=== PATIENT | male | born 1995 | race African-American/Black ===

== ENCOUNTER 2017-08-31 03:57 | Emergency (ER) | payer MEDICAID, OTHER ==
[~2017-08-31] VITALS: Ht 180.3 cm; Wt 91.8 kg
[2017-08-31] MEDS ORDERED: LORazepam 1MG TABLET ONE (04:49)
[2017-08-31] MEDS ORDERED: LORazepam 1MG TABLET PO ONE (05:00)
[2017-08-31 05:23] VITALS: BP 148/83
== END 2017-08-31 05:26 | disposition home or self-care (01) ==
LOC: ED 05:24
DX: F41.1 Generalized anxiety disorder (principal); F10.220 Alcohol dependence with intoxication, uncomplicated
CPT/HCPCS: 99284

== ENCOUNTER 2018-08-02 11:31 | Emergency (ER) | payer OTHER ==
[~2018-08-02] VITALS: Ht 180.3 cm; Wt 86.2 kg
[2018-08-02 12:39] LABS: BASOPHILS # (AUTO) 0.03 x10^3/uL (0-0.1); BASOPHILS % (AUTO) 0 % (0-1); EOSINOPHILS # (AUTO) 0.28 x10^3/uL (0-0.4); EOSINOPHILS % (AUTO) 2 % (1-7); LYMPHOCYTES # (AUTO) 1.23 x10^3/uL (1-3.4); LYMPHOCYTES % (AUTO) 10 % (22-44); MD NO; MEAN CORPUSCULAR HGB CONC 34.1 g/dL (33.2-36.2); MEAN CORPUSCULAR VOLUME 87.9 fL (81-97); MEAN PLATELET VOLUME 7.6 fL (7.4-10.4); MONOCYTES # (AUTO) 0.32 x10^3/uL (0.2-0.8); MONOCYTES % (AUTO) 3 % (2-9); NEUTROPHILS # (AUTO) 10.66 x10^3/uL (1.8-6.8); NEUTROPHILS % (AUTO) 85 % (42-75); PLATELET COUNT 338 x10^3/uL (130-400); RED BLOOD COUNT 5.46 x10^6/uL (4.38-5.82); RED CELL DISTRIBUTION WIDTH 13.7 % (9.4-14.8)
[2018-08-02 12:45] LABS: ALBUMIN 4.5 g/dL (3.4-5.0); ANION GAP 13 mmol/L (5-15); CALCIUM 9.4 mg/dL (8.5-10.1); CHLORIDE 108 mmol/L (98-107); CREATININE 1.44 mg/dL (0.7-1.3)
[2018-08-02 14:04] LABS: MICROSCOPIC NOT IND
[2018-08-02 14:08] LABS: CULTURE INDICATED? NO
[2018-08-02 14:44] VITALS: BP 133/47
== END 2018-08-02 14:46 | disposition home or self-care (01) ==
LOC: ED 13:23
DX: F10.10 Alcohol abuse, uncomplicated (principal); F41.1 Generalized anxiety disorder; I86.1 Scrotal varices; F17.210 Nicotine dependence, cigarettes, uncomplicated
CPT/HCPCS: 36415; 76870; 80048; 81003; 82040; 85025; 93975; 99284; Q0177

== ENCOUNTER 2018-11-11 11:31 | Emergency (ER) | payer OTHER ==
[~2018-11-11] VITALS: Ht 182.9 cm; Wt 81.8 kg
--- NOTE | 2018-11-11 11:50 | NUR ---
Pt provided urine sample, Pt transported from ED 22 to ED room Trauma 1. Provided report to TOY Charles.
--- NOTE | 2018-11-11 12:00 | NUR ---
THIS IS A 23 YEAR OLD MALE WHO presents to ED by EMS with L2K in place. Pt has ETOH odor. Pt's parents called 911 and reported pt suicidal. Pt admits to holding a knife to his throat and stating, "I wish I had the bravery to kill myself." Pt is AOX4, has unlabored respirations equal bilaterally, NADN. SITTER AT BS, BELONGINGS SECURED
[2018-11-11 12:23] LABS: ALBUMIN 4.1 g/dL (3.4-5.0); ANION GAP 10 mmol/L (5-15); CALCIUM 8.9 mg/dL (8.5-10.1); CHLORIDE 108 mmol/L (98-107); CREATININE 1.17 mg/dL (0.7-1.3)
[2018-11-11 12:24] LABS: BASOPHILS # (AUTO) 0.03 x10^3/uL (0-0.1); BASOPHILS % (AUTO) 0 % (0-1); EOSINOPHILS # (AUTO) 0.03 x10^3/uL (0-0.4); EOSINOPHILS % (AUTO) 0 % (1-7); LYMPHOCYTES # (AUTO) 2.41 x10^3/uL (1-3.4); LYMPHOCYTES % (AUTO) 33 % (22-44); MD NO; MEAN CORPUSCULAR HEMOGLOBIN 29.2 pg (27.5-34.5); MEAN CORPUSCULAR HGB CONC 33.3 g/dL (33.2-36.2); MEAN CORPUSCULAR VOLUME 87.8 fL (81-97); MEAN PLATELET VOLUME 7.7 fL (7.4-10.4); MONOCYTES # (AUTO) 0.47 x10^3/uL (0.2-0.8); MONOCYTES % (AUTO) 6 % (2-9); NEUTROPHILS # (AUTO) 4.37 x10^3/uL (1.8-6.8); NEUTROPHILS % (AUTO) 60 % (42-75); PLATELET COUNT 320 x10^3/uL (130-400); RED BLOOD COUNT 5.59 x10^6/uL (4.38-5.82); RED CELL DISTRIBUTION WIDTH 13.9 % (9.4-14.8)
[2018-11-11 12:24] LABS: AMPHETAMINE SCREEN, URINE Negative (Negative); BARBITURATE SCREEN, URINE Negative (Negative); BENZODIAZEPINE SCREEN, URINE Negative (Negative); CANNABINOID SCREEN, URINE Negative (Negative); COCAINE SCREEN, URINE Negative (Negative); METHADONE SCREEN, URINE Negative (Negative); OPIATE SCREEN, URINE Negative (Negative)
[2018-11-11 12:25] LABS: ACETAMINOPHEN < 2 mcg/mL (10-30); SALICYLATE LEVEL < 1.7 mg/dL (2.8-20.0)
--- NOTE | 2018-11-11 12:52 | NUR ---
SITTER AT , MEAL PROVIDED. BELONGINGS IN SECURED LOCATION
--- NOTE | 2018-11-11 13:30 | NUR ---
SAT WITH PATIENT AT LENGTH, STATES, "I DONT WANT TO LIVE". EMOTIONAL SUPPORT GIVEN. SITTER AT BS, WATER GIVEN
--- NOTE | 2018-11-11 15:02 | NUR ---
PT RESTING, SITTER AT BS
--- NOTE | 2018-11-11 15:20 | NUR ---
MOVE PATIENT TO 40, HOSPITAL BED PROVIDED, WATER GIVEN. PT VERBALIZED NO OTHER NEEDS, ROOM SECURED, SITTER IN HAM
--- NOTE | 2018-11-11 16:37 | NUR ---
PT SLEEPING ROOM SECURED. SITTER IN HAM
[2018-11-11] MEDS ORDERED: ONDANSETRON ODT 4 MG ONE (17:25)
--- NOTE | 2018-11-11 17:26 | NUR ---
PT LYNETTE KHAN, DISCUSSED WITH DR. ADAMS, ORDERS RECEIVED
[2018-11-11] MEDS ORDERED: ONDANSETRON ODT 4 MG PO ONE (17:30)
--- NOTE | 2018-11-11 17:46 | NUR ---
NO NAUSEA AT THIS TIME. PT WATCHING TV, SITTER AT BS, VERBALIZED NO NEEDS AT THIS TIME
--- NOTE | 2018-11-11 18:52 | NUR ---
REPORT TO RACHAEL YEAGER, PLAN OF CARE DISCUSSED
[2018-11-11] MEDS ORDERED: LORazepam 1MG TABLET ONE (19:21)
[2018-11-11] MEDS ORDERED: LORazepam 1MG TABLET PO ONE (19:30)
--- NOTE | 2018-11-11 19:31 | NUR ---
PT CONCERNED ABOUT GOING THROUGH WITHDRAWLS. PT STATED HE IS SHAKING. BREATHYLIZER DONE, SEE CHARTED. PT NOT NOTED TO HAVE TREMORS AT THIS TIME. PT VSS, SEE CHARTED. ERP MADE AWARE OF PT CONCERNS. ORDERS PLACED. PT MEDICATED PER EMAR. PT ASKING ABOUT THE SIDE EFFECTS OF ORDERED ATIVAN, CONCERNED FOR HAVING AN ADVERSE REACTION AND HALLUCINATIONS HE HAS NEVER TAKEN ATIVAN BEFORE. PT REASSURED CHANCES OF ADVERSE REACTIONS ARE LOW THOUGH POSSIBLE AND HE IS BEING FREQUENTLY OBSERVED. SITTER AT DOOR TO OBS PT.
--- NOTE | 2018-11-11 20:45 | NUR ---
PT RESTING CALMLY IN BED WITH EYES CLOSED. RESP EVEN AND NON LABORED. SITTER AT DOOR. WILL CONTINUE TO MONITOR.
--- NOTE | 2018-11-11 21:11 | NUR ---
PT RESTING IN BED WITH EYES CLOSED. SITTER AT DOOR FOR OBS.
--- NOTE | 2018-11-11 22:48 | NUR ---
PT RESITNG IN BED WITH EYES CLOSED. NO STATED NEEDS AT THIS TIME. WILL CONTINUE TO MONITOR. SITTER AT DOOR.
--- NOTE | 2018-11-11 23:31 | NUR ---
PT RESTING IN BED, PT REBRETHYLIZED, STILL ABOVE LEGAL LIMIT. PT CALM. SITTER AT DOOR.
--- NOTE | 2018-11-12 00:09 | NUR ---
PT RESTING IN BED WITH EYES CLOSED. PT DOZING OFF AND ON. NO NEEDS AT THIS TIME. WILL CONTINUE TO MONITOR.
--- NOTE | 2018-11-12 01:33 | NUR ---
PT AWOKEN FOR BREATHALIZER. 0.071 AT THIS TIME.
--- NOTE | 2018-11-12 01:36 | NUR ---
TELEPSYCH PAGED AT THIS TIME.
--- NOTE | 2018-11-12 02:42 | NUR ---
PT RESTING IN BED WITH COVERS OVER HEAD. PT AWAITING TELEPSYCH EVAL. SITTER AT DOOR FOR FREQUENT OBS.
--- NOTE | 2018-11-12 03:12 | NUR ---
pt resting in bed dozing off and on. no stated needs at this time. sitter monitoring pt frequently.
--- NOTE | 2018-11-12 04:35 | NUR ---
called telepsych to inquire about status of telepsych consult. 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 pt is almost to top of list.
--- NOTE | 2018-11-12 05:31 | NUR ---
PT ASKED THAT HIS JOB BE NOTIFIED THAT HE IS IN THE HOSPITAL AND NOT ABLE TO COME IN TO WORK. PT AWARE NO FURTHER INFO CAN BE GIVEN TO HIS PLACE OF WORK. PT ASKED THAT WE SPEAK TO ARLEY GOVEA AT [facility]. NO ANSWER AT PHONE NUMBER FOUND ONLINE.
--- NOTE | 2018-11-12 06:50 | NUR ---
REPORT TO SOC. BEDSIDE REPORT GIVEN TO LUISA YEAGER.
--- NOTE | 2018-11-12 07:02 | NUR ---
[facility]. pt sleeping on hospital bed, calm, cooperative & responds approp to staff, NAD, no needs at this time, telemonitor in place awaiting consult, pt remains in safe environment, sitter in view,
--- NOTE | 2018-11-12 08:01 | NUR ---
pt continues sleeping on hospital bed, NAD with equal chest rise/fall, no needs at this time, pt remains in safe environment, sitter in view.
[2018-11-12 08:51] VITALS: BP 111/76
--- NOTE | 2018-11-12 08:51 | NUR ---
Patient given discharge instructions and referrals, they have confirmed that they understand the instructions. Patient ambulatory with steady gait.
== END 2018-11-12 08:51 | disposition home or self-care (01) ==
LOC: ED 16:16
DX: F10.120 Alcohol abuse with intoxication, uncomplicated (principal); F41.1 Generalized anxiety disorder
CPT/HCPCS: 36415; 80048; 80307; 80329; 82040; 85025; 99284; Q0162; G0480

== ENCOUNTER 2019-01-07 16:39 | Emergency (ER) | payer OTHER ==
[~2019-01-07] VITALS: Ht 182.9 cm; Wt 90.0 kg
[2019-01-07 17:26] LABS: MICROSCOPIC NOT IND
--- NOTE | 2019-01-07 17:26 | NUR ---
Note [email or web address] in EDM - 01/07/19 at 1730 by RYANNE PT BIB PARENTS PT IS ETOH ADMITS SAME PARENTS REPORT PT WANTING TO KILL HIMSELF HOWEVER PT DENIES HI AND SI AT THIS TIME STS "I SAY A LOT OF THINGS WHEN I GET DRUNK" PT REQUESTING TO GET IN A REHAB PROGRAM FOR ETOH HAS ATTEMPTED OTHER DETOX PROGRAMS BEFORE WO SUCCESS IS COOPERATIVE AND CLOTHING REMOVED AND SECURED
[2019-01-07 17:29] LABS: CULTURE INDICATED? NO
--- NOTE | 2019-01-07 17:31 | NUR ---
PT BIB PARENTS PT IS ETOH ADMITS SAME PARENTS REPORT PT WANTING TO KILL HIMSELF HOWEVER PT DENIES HI AND SI AT THIS TIME STS "I SAY A LOT OF THINGS WHEN I GET DRUNK" PT REQUESTING TO GET IN A REHAB PROGRAM FOR ETOH HAS ATTEMPTED OTHER DETOX PROGRAMS BEFORE WO SUCCESS IS COOPERATIVE AND CLOTHING REMOVED AND SECURED
[2019-01-07 17:40] LABS: AMPHETAMINE SCREEN, URINE Negative (Negative); BARBITURATE SCREEN, URINE Negative (Negative); BENZODIAZEPINE SCREEN, URINE Negative (Negative); CANNABINOID SCREEN, URINE Negative (Negative); COCAINE SCREEN, URINE Negative (Negative); METHADONE SCREEN, URINE Negative (Negative); OPIATE SCREEN, URINE Negative (Negative)
[2019-01-07 18:16] LABS: BASOPHILS # (AUTO) 0.02 x10^3/uL (0-0.1); BASOPHILS % (AUTO) 0 % (0-1); EOSINOPHILS # (AUTO) 0.06 x10^3/uL (0-0.4); EOSINOPHILS % (AUTO) 1 % (1-7); LYMPHOCYTES # (AUTO) 1.53 x10^3/uL (1-3.4); LYMPHOCYTES % (AUTO) 22 % (22-44); MD NO; MEAN CORPUSCULAR HEMOGLOBIN 29.8 pg (27.5-34.5); MEAN CORPUSCULAR HGB CONC 33.4 g/dL (33.2-36.2); MEAN CORPUSCULAR VOLUME 89.3 fL (81-97); MEAN PLATELET VOLUME 7.8 fL (7.4-10.4); MONOCYTES % (AUTO) 6 % (2-9); NEUTROPHILS % (AUTO) 71 % (42-75); PLATELET COUNT 334 x10^3/uL (130-400); RED CELL DISTRIBUTION WIDTH 13.5 % (9.4-14.8)
[2019-01-07 18:26] LABS: INTERNATIONAL NORMALIZED RATIO 0.97 (0.93-1.1); PROTHROMBIN TIME 10.2 Seconds (9.6-11.5)
[2019-01-07 18:28] LABS: ALBUMIN 4.2 g/dL (3.4-5.0); ANION GAP 9 mmol/L (5-15); CALCIUM 8.6 mg/dL (8.5-10.1); CHLORIDE 107 mmol/L (98-107)
[2019-01-07 18:30] LABS: ALANINE AMINOTRANSFERASE 23 U/L (12-78); ALKALINE PHOSPHATASE 62 U/L (45-117); CREATININE 1.12 mg/dL (0.7-1.3); TOTAL PROTEIN 8.2 g/dL (6.4-8.2)
--- NOTE | 2019-01-07 18:33 | NUR ---
PT RESTING QUIETLY/COMFORTABLY AT THIS TIME. ALL RESULTS BACK, PT FOR RECHECK.
--- NOTE | 2019-01-07 18:56 | NUR ---
ERP IN TO REASSESS PT. PARENTS AT BS.
[2019-01-07] MEDS ORDERED: ONDANSETRON ODT 4 MG ONE (20:05)
[2019-01-07 21:02] VITALS: BP 124/61
--- NOTE | 2019-01-07 21:02 | NUR ---
PT A/O X 4. PT STATES HE IS NOT SUICIDAL. PT ABLE TO AMBULATE WITH STEADY GAIT. PT DISCHARGED HOME WITH PARENTS.
== END 2019-01-07 21:13 | disposition home or self-care (01) ==
LOC: ED 18:20
DX: F10.220 Alcohol dependence with intoxication, uncomplicated (principal); F17.200 Nicotine dependence, unspecified, uncomplicated
CPT/HCPCS: 36415; 71045; 80053; 80307; 81003; 85025; 85610; 85730; 99284

== ENCOUNTER 2021-01-28 09:35 | Emergency (ER) | payer MEDICAID, OTHER ==
[~2021-01-28] VITALS: Ht 180.3 cm; Wt 91.6 kg
[2021-01-28] MEDS ORDERED: ONDANSETRON 2MG/ML, 2ML ONE (09:59)
[2021-01-28] MEDS ORDERED: LORazepam 2 MG/ML, 1ML ONE (09:59)
[2021-01-28] MEDS ORDERED: ONDANSETRON 2MG/ML, 2ML IVPush ONE (10:00)
[2021-01-28] MEDS ORDERED: LORazepam 2 MG/ML, 1ML IVPush PRN (10:00)
[2021-01-28] MEDS ORDERED: SODIUM CHLORIDE FLUSH 10ML SYR IVF ONE (10:00)
[2021-01-28] MEDS ORDERED: SODIUM CHLORIDE 0.9% 1,000ML IVBOLUS ONE (10:00)
[2021-01-28] MEDS ORDERED: THIAMINE 100 MG in SODIUM CHLORIDE 0.9% 50 ML IVPB ONE (10:00)
--- NOTE | 2021-01-28 10:16 | NUR ---
PT BIB PARENTS VIA POV FOR COMPLAING OF "ALCOHOL WITHDRAWAL". PER PT LAST DRANK WINE AN HOUR AGO. PT REPORTS DRINKING APPROX 1 BOX OF WINE/ DAY. PT ALSO REPORTS INSOMNIA, LIGHT HALLUCINATIONS, N/V. PT STATES BEEN THROUGH THIS BEFORE WITH HX OF WITHDRAWAL SEIZURE, LAST EIGHT MONTHS AGO. PT RESTING IN [facility], MONITORING IN PLACE, NADN AT THIS TIME, MEDICATED PER EMAR, 20G PIV PLACED IN L AC, PER PT NO NEEDS AT THIS TIME, SEIZURE PRECAUTIONS IN PLACE, EKG DONE, WCTM.
[2021-01-28 10:18] LABS: BASOPHILS % (AUTO) 1 % (0-1); EOSINOPHILS % (AUTO) 3 % (1-7); LYMPHOCYTES % (AUTO) 22 % (22-44); MEAN CORPUSCULAR HEMOGLOBIN 29.5 pg (27.5-34.5); MEAN CORPUSCULAR HGB CONC 34.5 g/dL (33.2-36.2); MEAN PLATELET VOLUME 7.5 fL (7.4-10.4); MONOCYTES % (AUTO) 8 % (2-9); NEUTROPHILS % (AUTO) 66 % (42-75); PLATELET COUNT 399 x10^3/uL (130-400); RED BLOOD COUNT 5.22 x10^6/uL (4.38-5.82); RED CELL DISTRIBUTION WIDTH 14.7 % (9.4-14.8)
[2021-01-28 10:25] LABS: ALBUMIN 3.7 g/dL (3.4-5.0); ANION GAP 8 mmol/L (5-15); CALCIUM 8.9 mg/dL (8.5-10.1); CHLORIDE 105 mmol/L (98-107)
[2021-01-28 10:35] LABS: ALANINE AMINOTRANSFERASE 111 U/L (12-78); ALKALINE PHOSPHATASE 61 U/L (45-117); BILIRUBIN,TOTAL 0.6 mg/dL (0.2-1.0); CREATININE 0.85 mg/dL (0.7-1.3)
[2021-01-28 10:40] VITALS: BP 144/80
[2021-01-28] MEDS ORDERED: LORazepam 1MG TABLET PO ONE (11:00)
[2021-01-28] MEDS ORDERED: LORazepam 1MG TABLET ONE (11:09)
== END 2021-01-28 11:32 | disposition home or self-care (01) ==
LOC: ED 10:53
DX: F10.139 Alcohol abuse with withdrawal, unspecified (principal); R94.31 Abnormal electrocardiogram [ECG] [EKG]; F17.200 Nicotine dependence, unspecified, uncomplicated; Y90.0 Blood alcohol level of less than 20 mg/100 ml
CPT/HCPCS: 36415; 80053; 80320; 83735; 84443; 85025; 93005; 96365; 96375; 99284; J2060; J2405; J3411; J7030; G0480

== ENCOUNTER 2021-02-05 09:17 | Emergency (ER) | payer MEDICAID ==
[~2021-02-05] VITALS: Ht 180.3 cm; Wt 92.8 kg
--- NOTE | 2021-02-05 09:34 | NUR ---
Pt brought back from triage with chief complaint of "my brain isnt working, this isnt how I normally act". Pt reports last drink an hour ago, "it was a lot".
--- NOTE | 2021-02-05 09:39 | NUR ---
Report to [facility]
[2021-02-05] MEDS ORDERED: THIAMINE 100 MG/ML, 2ML IM ONE (10:00)
[2021-02-05] MEDS ORDERED: LORazepam 1MG TABLET PO ONE (10:00)
[2021-02-05] MEDS ORDERED: LORazepam 1MG TABLET ONE (10:11)
[2021-02-05] MEDS ORDERED: THIAMINE 100MG TABLET ONE (10:11)
[2021-02-05 10:14] VITALS: BP 135/78
[2021-02-05 10:43] LABS: BASOPHILS % (AUTO) 1 % (0-1); EOSINOPHILS % (AUTO) 2 % (1-7); LYMPHOCYTES % (AUTO) 36 % (22-44); MEAN CORPUSCULAR HEMOGLOBIN 29.7 pg (27.5-34.5); MEAN CORPUSCULAR HGB CONC 34.3 g/dL (33.2-36.2); MEAN PLATELET VOLUME 7.2 fL (7.4-10.4); MONOCYTES % (AUTO) 12 % (2-9); NEUTROPHILS % (AUTO) 49 % (42-75); PLATELET COUNT 347 x10^3/uL (130-400); RED BLOOD COUNT 5.28 x10^6/uL (4.38-5.82); RED CELL DISTRIBUTION WIDTH 15.2 % (9.4-14.8)
[2021-02-05 10:54] LABS: ALBUMIN 3.6 g/dL (3.4-5.0); ANION GAP 7 mmol/L (5-15); CALCIUM 8.9 mg/dL (8.5-10.1); CHLORIDE 107 mmol/L (98-107)
[2021-02-05 10:57] LABS: ALANINE AMINOTRANSFERASE 104 U/L (12-78); ALKALINE PHOSPHATASE 62 U/L (45-117); BILIRUBIN,TOTAL 0.4 mg/dL (0.2-1.0); CREATININE 0.76 mg/dL (0.7-1.3); TOTAL PROTEIN 8.3 g/dL (6.4-8.2)
== END 2021-02-05 11:46 | disposition home or self-care (01) ==
LOC: ED 11:30
DX: F10.229 Alcohol dependence with intoxication, unspecified (principal); R45.1 Restlessness and agitation; F17.210 Nicotine dependence, cigarettes, uncomplicated; R94.31 Abnormal electrocardiogram [ECG] [EKG]; Y90.0 Blood alcohol level of less than 20 mg/100 ml
CPT/HCPCS: 36415; 80053; 80320; 82140; 83690; 85025; 93005; 96372; 99284; J3411; G0480